=== PATIENT | male | born 1975 | race Asian ===

== ENCOUNTER 2018-05-18 01:29 | Emergency (ER) | payer MEDICAID ==
[2018-05-18] MEDS: HYDROCODONE/APAP (10/325) TAB PO (02:08)
== END 2018-05-18 03:45 | disposition home or self-care (01) ==
LOC: FTE 01:29
DX: S92.002A Unspecified fracture of left calcaneus, initial encounter for closed fracture (principal); X58.XXXA Exposure to other specified factors, initial encounter; Y92.9 Unspecified place or not applicable
CPT/HCPCS: 29515; 73610; 73630-LT; 99283-25